=== PATIENT | female | born 2005 | race Caucasian/White ===

== ENCOUNTER 2024-05-20 07:44 | Day surgery (SDC) | payer OTHER ==
[2024-05-19 16:43] VITALS: BP 118/73
[~2024-05-20] VITALS: Ht 172.7 cm; Wt 65.9 kg
[~2024-05-20 07:44] MED LIST: IBLOOD GLUCOSE TEST STRIP 1 EA TEST VI PRN; LACTATED RINGER'S 1,000 ML IV SCH; LIDOCAINE HCL 1% 5 ML SDV INJ ONE; THERMOTABS TAB1 EACH PO; VIENVA-28 TABL1 EACH PO; ZYRTEC10 MG PO
[2024-05-20 08:16] VITALS: BP 118/65
[2024-05-20] MEDS ORDERED: SEVOFLURANE 250 ML BTL INH ONE (08:33)
[2024-05-20] MEDS ORDERED: LIDOCAINE HCL 2% 5 ML SDV ONE (09:27)
[2024-05-20] MEDS ORDERED: propofoL 200 MG/20 ML VIAL ONE (09:27)
[2024-05-20] MEDS ORDERED: fentaNYL citrate 100 MCG/2 ML VIAL ONE (09:27)
[2024-05-20] MEDS ORDERED: ondansetron HCL 4 MG/2 ML VIAL ONE (09:27)
[2024-05-20] MEDS ORDERED: ROCURONIUM BROMIDE 50 MG/5 ML SYR ONE (09:27)
[2024-05-20] MEDS ORDERED: DEXAMETHASONE SOD PHOS 4 MG/ML VIAL ONE (09:27)
[2024-05-20] MEDS ORDERED: MIDAZOLAM HCL 2 MG/2 ML VIAL ONE (09:28)
[2024-05-20] MEDS ORDERED: ACETAMINOPHEN 1,000 MG/100 ML VIAL ONE (09:29)
[2024-05-20] MEDS ORDERED: SUGAMMADEX SODIUM 200 MG/2 ML ML ONE (09:29)
[2024-05-20] MEDS ORDERED: LACTATED RINGER'S 1,000 ML IV ONE (10:04)
[2024-05-20] MEDS ORDERED: fentaNYL citrate 50 MCG/ML SDV IV PRN (10:15)
[2024-05-20] MEDS ORDERED: NALOXONE HCL 0.4 MG SYR IV PRN (10:15)
[2024-05-20] MEDS ORDERED: ondansetron HCL 4 MG/2 ML VIAL IV PRN (10:15)
[2024-05-20] MEDS ORDERED: IBLOOD GLUCOSE TEST STRIP 1 EA TEST VI PRN (10:15)
[2024-05-20] MEDS ORDERED: HYDROmorphone HCL 1 MG/ML SYR IV PRN (10:15)
[2024-05-20] MEDS ORDERED: PROCHLORPERAZINE EDISYLATE 10 MG/2 ML VIAL IV PRN (10:15)
[2024-05-20] MEDS ORDERED: droPERidol 5 MG/2 ML VIAL IV PRN (10:15)
--- NOTE | 2024-05-20 10:36 | NUR ---
05/20/24 1036 Sheets,Gemini 1027 PT ARRIVED TO PACU ON 6L VIA MASK, PT ASLEEP WITH ORAL AIRWAY IN PLACE. HEAD REPOSITIONED AND RESP EVEN AND UNLABORED.
[2024-05-20] MEDS ORDERED: ACETA/HYDROCODONE 325/7.5 15 ML BTL PO PRN (11:30)
[2024-05-20 11:35] VITALS: BP 115/66
--- NOTE | 2024-05-20 12:12 | OR ---
[facility] [address], [place] [address] Signed DATE OF OPERATION: 05/20/2024 SURGEON: Bassam Sutton MD PREOPERATIVE DIAGNOSIS: Chronic tonsillitis. POSTOPERATIVE DIAGNOSIS: Chronic tonsillitis. PROCEDURE: Tonsillectomy. ANESTHESIA: General, orotracheal; [employer] SALES CONSULTANT, Jonh PREOP HISTORY: Matilde is a 18-year-old young lady with chronic tonsillitis multiple infections, positive strep throat, persistent symptoms despite appropriate medications. She is taken to the operating room for the above-mentioned procedures. OPERATIVE PROCEDURE AND FINDINGS: After informed consent, the patient was taken to the operating room, placed in supine position, where general orotracheal anesthesia was induced. Patient and procedure were verified. The patient was repositioned. McIvor mouth gag placed into suspension. Headlight exam of the pharynx showed moderately hypertrophic cryptic tonsils. The left tonsil was grasped with a tenaculum, retracted medially, and removed from its fossa with mucosal sparing incisions with Coblation. The field was dry after the procedure. Same procedure on the right tonsil, tonsils were sent to Pathology. The mouth gag was released for several minutes. Immediate reinspection showed no bleeding points. The pharynx was suctioned clear of blood and secretions. Mouth gag was removed. The patient was awakened, extubated, and transported to the recovery room in good condition. No complications. BLOOD LOSS: Minimal. SPECIMEN: To Pathology. Electronically Signed By: BASSAM SUTTON MD 05/20/24 1212 PATIENT NAME: MATILDE RUCKER OPERATIVE REPORT DATE OF : 04 REPORT #: [id number] PHYSICIAN: BASSAM SUTTON MD PCP: HERBIE ORTIZ DO REPORT IS CONFIDENTIAL AND NOT TO BE RELEASED WITHOUT AUTHORIZATION [address] [place], [place] [address] Signed DRAINS: No drains. Bassam Sutton MD /MODL /[id number] Copies: ~ Electronically Signed By: BASSAM SUTTON MD 05/20/24 1212 PATIENT NAME: MATILDE RUCKER OPERATIVE REPORT DATE OF : 04 REPORT #: [id number] PHYSICIAN: BASSAM SUTTON MD PCP: HERBIE ORTIZ DO REPORT IS CONFIDENTIAL AND NOT TO BE RELEASED WITHOUT AUTHORIZATION
[2024-05-20] MEDS ORDERED: ondansetron HCL 4 MG/2 ML VIAL IV ONE (12:30)
[2024-05-20 12:36] VITALS: BP 117/68
--- NOTE | 2024-05-20 12:41 | NUR ---
1135: PATIENT BACK IN DAY SURGERY ROOM FROM PACU. RATES PAIN /10. VS CHECKED. IV SITE WNL. SCDs ON. GIVEN ICE CHIPS AND JELLO. MOTHER AT BEDSIDE. CALL LIGHT WITHIN REACH. 1220: PATIENT C/O NAUSEA. DR. DRISCOLL CALLED. NEW ORDER RECEIVED. 1227: COOL WASHCLOTHES PLACED ON PATIENT'S FOREHEAD AND CHEST. ZOFRAN GIVEN IV. MOM AT BEDSIDE. CALL LIGHT WITHIN REACH.
[2024-05-20 13:30] VITALS: BP 110/61
--- NOTE | 2024-05-23 17:30 | PATH ---
[facility] [address] [place], [place] [address] Signed SPECIMEN(S): A LEFT AND RIGHT TONSILS SPECIMEN SOURCE: A. LEFT AND RIGHT TONSILS CLINICAL HISTORY: Chronic tonsillitis and strep FINAL PATHOLOGIC DIAGNOSIS: Left and right tonsils: - Two 3.1 cm palatine tonsils (gross only). JVR:[facility] MICROSCOPIC EXAMINATION: Histologic sections of all submitted blocks are examined by light microscopy. These findings, together with the gross examination, support the pathologic diagnosis. GROSS DESCRIPTION: The specimen, labeled and designated "Meme, left and right tonsils," is received in formalin and consists of two pink-mobley to red-brown undesignated tonsils (3.1 x 1.8 x 1.6 cm, and 3.1 x 1.8 x 1.7 cm). One of the tonsils is arbitrarily inked blue. Both tonsils are serially sectioned to reveal pink-mobley to red-brown convoluted cut surfaces. The specimen is submitted for gross examination only VB (under the direct supervision of a pathologist) The Gross Description was prepared using a voice recognition system. The report was reviewed for accuracy; however, sound-alike word errors, addition and/or deletions may occur. If there is any question about this report, please contact Client Services. PERFORMING LABORATORY: The technical preparation was performed by [facility], [address] [facility] [place] [address] (CLIA#: [id number]). The [facility], [address] [place] [id number] (CLIA#: [id number]). Diagnostician: Vidal Jones MD Pathologist Electronically Signed 05/23/2024 PATIENT NAME: MATILDE RUCEKR PATHOLOGY DATE OF : 04 REPORT #: [id number] PHYSICIAN: [facility] PCP: HERBIE ORTIZ DO REPORT IS CONFIDENTIAL AND NOT TO BE RELEASED WITHOUT AUTHORIZATION [address] [place], [place] [address] Signed Copies: ~ PATIENT NAME: MATILDE RUCKER PATHOLOGY DATE OF : 04 REPORT #: [id number] PHYSICIAN: [facility] PCP: HERBIE ORTIZ DO REPORT IS CONFIDENTIAL AND NOT TO BE RELEASED WITHOUT AUTHORIZATION
== END 2024-05-20 14:15 | disposition home or self-care (01) ==
LOC: DS 07:44
PROVIDERS: ATTEND Otolaryngology
PROC: 0CBPXZZ Excision of Tonsils, External Approach (ICD-10-PCS; principal; 2024-05-20 09:30)
DX: J35.01 Chronic tonsillitis (principal)
CPT/HCPCS: 00170; J0131; J1100; J1171; J2003; J2250; J2405; J2704; J3010; J3490; J7121